=== PATIENT | female | born 1960 | race Caucasian/White ===

== ENCOUNTER 2021-11-16 11:15 | Outpatient (CLI) | payer OTHER, SELFPAY ==
--- NOTE | 2021-11-16 11:36 | MM_ITS ---
WS: [id number] BILATERAL 3D TOMOSYNTHESIS DIGITAL SCREENING MAMMOGRAPHY WITH CAD CLINICAL INFORMATION: SCREENING HISTORY: Screening mammogram. No current complaints. COMPARISON: September 16, 2020 TECHNIQUE: Bilateral CC and MLO views. FINDINGS: Scattered fibroglandular densities bilaterally. A few incidental punctate calcifications. No suspicio us focal mass, asymmetry, calcifications, or architectural distortion. No evidence of malignancy. MM/[place] [id number] IMPRESSION: BI-RADS: 2-Benign FOLLOW UP: 1 Year Follow-up Recommend return to annual screening mammography.
== END 2021-11-16 11:16 | disposition home or self-care (01) ==
LOC: RAD 11:21
PROVIDERS: PCP Nurse Practitioner Family; Visit Provider Nurse Practitioner Family
DX: Z12.31 Encounter for screening mammogram for malignant neoplasm of breast (principal)
CPT/HCPCS: 77063; 77067

== ENCOUNTER 2022-01-04 16:57 | Emergency (ER) | payer OTHER, SELFPAY ==
--- NOTE | 2022-01-04 17:10 | XRR_ITS ---
PROCEDURE INFORMATION: Exam: XR Right Knee Exam date and time: 01/04/2022 9:48 PM Age: 61 years old Clinical indication: Injury or trauma; Fall; Blunt trauma; Knee; Right TECHNIQUE: Imaging protocol: Radiologic exam of the Right knee. Views: 1 or 2 views. Total images: 3 COMPARISON: No relevant prior studies available. FINDINGS: Bones/joints: Bilateral oblique views of the knee. No acute fracture nor subluxation. No osseous erosion nor periosteal reaction. Soft tissues: Normal. XR/XR knee RT 1-2V [id number] IMPRESSION: 1. Bilateral oblique views of the knee. 2. No acute osseous pathology.
--- NOTE | 2022-01-04 17:10 | XRR_ITS ---
PROCEDURE INFORMATION: Exam: XR Left Knee Exam date and time: 01/04/2022 9:52 PM Age: 61 years old Clinical indication: Injury or trauma; Fall; Blunt trauma; Knee; Left TECHNIQUE: Imaging protocol: Radiologic exam of the Left knee. Views: 1 or 2 views. Total images: 2 COMPARISON: No relevant prior studies available. FINDINGS: Bones/joints: Normal. Soft tissues: Normal. XR/XR knee LT 1-2V [id number] IMPRESSION: No acute findings.
[2022-01-04 17:41] VITALS: BP 157/93; PULSE 70; RESP 18; TEMP 36.4; O2SAT 98; BMI 42.0
--- NOTE | 2022-01-04 20:57 | ED_ITS ---
HPI - Fall General: Chief Complaint: Fall Stated Complaint: SLIP AND FALL Time Seen by Provider: 01/04/22 20:56 History of Present Illness: Patient works at [employer]. Patient was walking across a mat that was wet when she slipped and fell landing on her back. Patient reports that her knees bilaterally are hurting her right wrist is hurting in her left elbow. Patient also reports some discomfort in her neck. Patient appears nontoxic. Patient appears in mild pain. 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 Patient does have a history of chronic pain in which she uses medical marijuana for her discomfort. Patient denies any significant injuries. Associated symptoms-after fall: Reports neck pain Review of Systems General: Reports: 10 or more systems reviewed and unremarkable except in HPI and below Musc: Reports: neck pain and extremity pain Physical Exam Const: COMMON NORMALS: alert HENMT: COMMON NORMALS: atraumatic HEAD & SCALP: atraumatic Neck/C-Spine: CERVICAL SPINE: No Cervical spine tenderness and Yes Paracervical muscle tenderness Resp: COMMON NORMALS: normal respiratory effort Cardio: COMMON NORMALS: regular rate RATE: regular rate GI: COMMON NORMALS: Soft to palpation PALPATION: Yes Soft to palpation Back/Pelvis: THORACIC SPINE/UPPER BACK: No thoracic spinal tenderness LUMBAR SPINE/LOWER BACK: No lumbar spinal tenderness Extremity: RIGHT UPPER EXTREMITY: Yes wrist (Joint line tenderness) Right wrist: Yes inspection, Yes palpation and Yes ROM LEFT UPPER EXTREMITY: Yes elbow joint (Normal range of motion, posterior tenderness) Left elbow: Yes inspection, Yes palpation and Yes ROM RIGHT LOWER EXTREMITY: Yes knee joint ( Minimal swelling, normal range of motion) Right knee: Yes inspection, Yes palpation and Yes ROM LEFT LOWER EXTREMITY: Yes knee joint (Normal range of motion) Left knee: Yes inspection, Yes palpation and Yes ROM Neuro: SENSORIUM/ORIENTATION: Yes alert Course Vital Signs: Vital signs: Vital Signs Temperature 97.6 F 01/04/22 17:41 Pulse Rate 87 01/04/22 21:04 Respiratory Rate 16 01/04/22 21:04 Blood Pressure 168/87 01/04/22 21:04 Pulse Oximetry 98 01/04/22 21:04 MDM - Fall Medical Decision Making 61-year-old female comes in today for complaints of injury sustained during a fall. Patient was at work and slipped on the wet floor mat causing her to land on her buttocks and back. Patient reports she injured her knees during the fall and also complains of left elbow and right wrist pain. On exam patient does have some tenderness to the knees bilaterally, right wrist, posterior elbow, and paraspinous muscles of the neck. Differential diagnosis includes multiple contusions, fracture, sprain. X-rays noted no acute fractures. Reviewed exam with patient with recommendations for treatment and follow-up. Patient reported understanding agreed to plan. I did discuss with her a subtle abnormality on the ulnar styloid that most likely is due to arthritic changes but may be a small avulsion fracture. Patient reported understanding and review of the x- rays by radiology and any concern we would notify her. Patient was okay with this plan and need for follow-up. Discharge Plan Discharge Patient Disposition: Home Clinical Impression: Contusion of multiple sites Fall from slipping Qualifiers: Encounter type: initial encounter Qualified Code(s): W01.0XXA - Fall on same level from slipping, tripping and stumbling without subsequent striking against object, initial encounter Condition: Stable Prescriptions: No Action divalproex 500 mg tablet,delayed release (DR/EC) 1,000 mg PO BEDTIME 0RF Calcium 500 500 mg calcium (1,250 mg) Tablet 500 mg PO DAILY 0RF buspirone 10 mg tablet 30 mg PO BID 0RF Rx Instructions: takes in the am and at noon Hair,Skin and Nails Tablet 1 tab PO DAILY 0RF escitalopram oxalate 10 mg tablet 10 mg PO QAM 0RF Vitamin D3 25 mcg (1,000 unit) Tablet 25 mcg PO DAILY 0RF Discharge Orders: Discharge ED (Routine); Ordered 01/04/22 Ordered By: Lauri Garcia Referrals: Zulema Mistry [Primary Care Provider] - Discharge Diet: Usual diet Discharge Activity: Increase activity as tolerated Patient Instructions: Musculoskeletal Pain (ED) Activity Restrictions/Additional Instructions: Activity as tolerated. Gentle stretching and range of motion exercises. Use acetaminophen and ibuprofen for pain. Follow-up with primary care for further instruction. Coding Level of Care Code ED Service Rig Operator for Sheryl Fwdwayne Exam Comprehensive
[2022-01-04 21:04] VITALS: BP 168/87; PULSE 87; RESP 16; O2SAT 98
--- NOTE | 2022-01-04 21:11 | XRR_ITS ---
PROCEDURE INFORMATION: Exam: XR Cervical Spine Exam date and time: 01/04/2022 9:39 PM Age: 61 years old Clinical indication: Injury or trauma; Fall; Blunt trauma TECHNIQUE: Imaging protocol: Radiologic exam of the cervical spine. Views: 2 or 3 views. Total images: 3 COMPARISON: No relevant prior studies available. FINDINGS: Bones/joints: C7 and its relationship with T1 not adequately visualized on lateral view. No acute fracture nor subluxation. No osseous erosion nor periosteal reaction. Soft tissues: Unremarkable. XR/XR cervical spine 3V* [id number] IMPRESSION: 1. C7 and its relationship with T1 not adequately visualized on lateral view. 2. Within limitations of study, no acute cervical spine pathology.
--- NOTE | 2022-01-04 21:11 | XRR_ITS ---
PROCEDURE INFORMATION: Exam: XR Left Elbow Exam date and time: 01/04/2022 9:54 PM Age: 61 years old Clinical indication: Injury or trauma; Fall; Blunt trauma (contusions or hematomas); Wrist; Right; Additional info: Fall injury TECHNIQUE: Imaging protocol: Radiologic exam of the Left elbow. Views: 3 or more views. Total images: 2 COMPARISON: No relevant prior studies available. FINDINGS: Bones/joints: Normal. Soft tissues: Normal. XR/XR elbow LT min 3V* [id number] IMPRESSION: No acute findings.
--- NOTE | 2022-01-04 22:13 | XRR_ITS ---
PROCEDURE INFORMATION: Exam: XR Right Wrist Exam date and time: 01/04/2022 9:58 PM Age: 61 years old Clinical indication: Injury or trauma; Fall; Blunt trauma (contusions or hematomas); Wrist; Right TECHNIQUE: Imaging protocol: Radiologic exam of the Right wrist. Views: 1 or 2 views. Total images: 3 COMPARISON: No relevant prior studies available. FINDINGS: Bones/joints: Tiny ossification adjacent to the ulnar styloid suggesting avulsion fracture age indeterminate. No additional fracture, subluxation, or dislocation detected. Soft tissues: Normal. XR/XR wrist RT 2V [id number] IMPRESSION: 1. Tiny ossification adjacent to the ulnar styloid suggesting avulsion fracture age indeterminate. 2. No additional fracture, subluxation, or dislocation detected.
[2022-01-04 22:22] VITALS: BP 157/78; PULSE 87; RESP 16; O2SAT 98
== END 2022-01-04 22:23 | disposition home or self-care (01) ==
PROVIDERS: Emergency Provider Nurse Practitioner Family; PCP Nurse Practitioner Family
DX: T14.8XXA Other injury of unspecified body region, initial encounter (principal); W01.0XXA Fall on same level from slipping, tripping and stumbling without subsequent striking against object, initial encounter
CPT/HCPCS: 72040; 73080; 73100; 73560; 99284

== ENCOUNTER 2023-03-06 05:46 | Emergency (ER) | payer OTHER, SELFPAY ==
[2023-03-06 05:53] VITALS: BP 164/71; PULSE 67; RESP 18; TEMP 36.8; O2SAT 99; BMI 40.0
--- NOTE | 2023-03-06 05:59 | XRR_ITS ---
PROCEDURE INFORMATION: Exam: XR Right Knee Exam date and time: 03/06/2023 6:25 AM Age: 63 years old Clinical indication: Injury or trauma; Fall; Work related; Blunt trauma; Knee; Right TECHNIQUE: Imaging protocol: Radiologic exam of the right knee. Views: 3 views. COMPARISON: No relevant prior studies available. FINDINGS: Bones/joints: Moderate to severe medial compartment joint space narrowing. Marginal osteophytes in each compartment. Small joint effusion. Negative fracture. Normal joint alignment. Soft tissues: Normal. XR/XR knee RT 3V* [id number] IMPRESSION: Negative for acute osseous abnormality.
--- NOTE | 2023-03-06 06:00 | ED_ITS ---
HPI - Fall General: Chief Complaint: Fall Stated Complaint: fell Time Seen by Provider: 03/06/23 05:57 Source: patient Mode of arrival: ambulatory Limitations: no limitations History of Present Illness: 63-year-old female fell today at work roughly 2 directly onto her right knee she has right knee pain she rates a 6 out of 10 she states she has had chronic pain in that knee as well she is able to ambulate but does make her pain worse denies any other injuries from her fall Associated symptoms-after fall: Denies abdominal pain, chest pain, headache(s) or neck pain Review of Systems Const: Denies: fever(s) or chills ENMT: Denies: throat pain or dental pain Card: Denies: chest pain Resp: Denies: dyspnea GI: Denies: abdominal pain, nausea, vomiting or diarrhea Musc: Reports: extremity pain; Denies: neck pain or back pain Skin/Breast: Denies: rash Neuro: Denies: headache(s) Physical Exam Const: COMMON NORMALS: no acute distress, patient oriented x3 and healthy appearing HENMT: COMMON NORMALS: normocephalic and atraumatic HEAD & SCALP: normocephalic and atraumatic Neck/C-Spine: COMMON NORMALS: full ROM and supple Chest: COMMONS NORMALS: normal inspection of the chest Resp: COMMON NORMALS: normal respiratory effort Cardio: COMMON NORMALS: regular rate, regular rhythm and No murmurs present (Cardio) RATE: regular rate RHYTHM: regular rhythm Extremity: COMMON NORMALS: full ROM NARRATIVE EXTREMITY EXAM: tenderness over anterior knee Neuro: COMMON NORMALS: patient oriented x3, moves all extremities and no focal motor deficits Psych: COMMON NORMALS: mental status grossly normal, Normal thought process present and cooperative THOUGHT PROCESS: Normal thought process present Skin: COMMON NORMALS: no rashes or lesions noted and no wounds GENERAL SKIN EXAM: no rashes or lesions noted Course Vital Signs: Vital signs: Vital Signs Temperature 98.3 F 03/06/23 05:53 Pulse Rate 67 03/06/23 05:53 Respiratory Rate 18 03/06/23 05:53 Blood Pressure 164/71 03/06/23 05:53 Pulse Oximetry 99 03/06/23 05:53 Oxygen Delivery Me thod Nasal Cannula 03/06/23 05:53 MDM - Fall Medical Decision Making Patient presents here with a contusion to her right knee x-ray shows no fracture she is well-appearing here she is able to ambulate she is stable for discharge she is follow-up with PCP and return if worsening. Medical Records I reviewed the patient's medical records. XR interpretation done by ED provider, pending radiology final review ED provider radiology interpretation(s): xr knee: no acute fx Discharge Plan Discharge Patient Disposition: Home Clinical Impression: Contusion of knee, right Condition: Stable Prescriptions: No Action silver sulfadiazine 1 % cream 1 applic topical BID 14 Days Qty: 50 2RF Rx Instructions: apply a 1.5 mm thickness cephalexin 500 mg capsule 500 mg PO BID 7 Days Qty: 14 0RF divalproex 500 mg tablet,delayed release (DR/EC) 1,000 mg PO BEDTIME Calcium 500 500 mg calcium (1,250 mg) Tablet 500 mg PO DAILY buspirone 10 mg tablet 30 mg PO BID Rx Instructions: takes in the am and at noon Hair,Skin and Nails Tablet 1 tab PO DAILY escitalopram oxalate 10 mg tablet 10 mg PO QAM Vitamin D3 25 mcg (1,000 unit) Tablet 25 mcg PO DAILY Discharge Orders: Discharge ED (Routine); Ordered 03/06/23 Ordered By: Ziyad Huitron Referrals: Zulema Mistry FNP [Primary Care Provider] - Discharge Diet: Advance as tolerated Discharge Activity: Resume usual activity Patient Instructions: Contusion in Adults (ED), Knee Pain (ED) Coding Level of Care Code ED Veterinary Practitioner for Sheryl Marmolejo
[2023-03-06 06:49] VITALS: BP 164/71; PULSE 67; RESP 18; TEMP 36.8; O2SAT 99
== END 2023-03-06 06:50 | disposition home or self-care (01) ==
PROVIDERS: Emergency Provider Emergency Medicine; PCP Nurse Practitioner Family
DX: S80.01XA Contusion of right knee, initial encounter (principal); W19.XXXA Unspecified fall, initial encounter; Y99.0 Civilian activity done for income or pay
CPT/HCPCS: 73562; 99283

== ENCOUNTER → 2023-07-12 08:00 | Outpatient (BNVA) | payer MEDICARE, SELFPAY | PROVIDERS: PCP Nurse Practitioner Family; Visit Provider Nurse Practitioner Family | DX: L40.8 Other psoriasis (principal); L40.0 Psoriasis vulgaris | CPT/HCPCS: 99204 ==

== ENCOUNTER 2023-07-21 07:43 | Emergency (ER) | payer MEDICARE, MEDICAID, SELFPAY ==
[2023-07-21 07:45] VITALS: BP 137/95; PULSE 71; RESP 15; TEMP 36.4; O2SAT 97
--- NOTE | 2023-07-21 08:11 | XRR_ITS ---
PROCEDURE INFORMATION: Exam: XR Chest Exam date and time: 07/21/2023 8:43 AM Age: 63 years old Clinical indication: Shortness of breath; Additional info: Cough and congestion TECHNIQUE: Imaging protocol: Radiologic exam of the chest. Views: 2 views. COMPARISON: CR XR cervical spine 3V* [id number] 01/04/2022 9:39 PM FINDINGS: Lungs: Unremarkable. No consolidation. Pleural spaces: Unremarkable. No pleural effusion. No pneumothorax. Heart/Mediastinum: Unremarkable. No cardiomegaly. Vasculature: Aortic arch atherosclerotic calcification. Bones/joints: Mild degenerative changes along the spine. XR/XR chest 2V* [id number] IMPRESSION: No acute findings.
--- NOTE | 2023-07-21 08:15 | ED_ITS ---
HPI - URI/Sore Throat General: Chief Complaint: Upper Respiratory Infection Stated Complaint: headache, sore throat Time Seen by Provider: 07/21/23 07:49 History of Present Illness: 63-year-old female presents emergency de partment chief complaint of a productive cough has been ongoing for last 2 to 3 days patient reports at work she inhaled a odiferous substance that was thrown into the trash at work in which she has had cough and congestion since patient does not endorse fevers or chills she reports it is unknown what the color of her sputum is patient reports generalized fatigue and malaise she does not endorse any fevers or chills or any recent sick or ill contacts patient reports a prior history of smoking however quit roughly 13 years ago and which has no reportable history of COPD. Patient presents to the emergency room department for further assessment management. Associated symptoms: Deny abdominal pain, chills, chest pain, fever(s), headache(s), nausea or vomiting Review of Systems General: Reports: 10 or more systems reviewed and unremarkable except in HPI and below Const: Reports: fatigue and malaise; Denies: fever(s) or chills Eyes: Denies: change in vision or blurry vision Card: Denies: chest pain or palpitations Resp: Reports: dyspnea, productive cough, change in phlegm color and chest congestion GI: Denies: abdominal pain, nausea or vomiting : Denies: flank pain Musc: Denies: extremity pain or extremity swelling Skin/Breast: Denies: rash or pruritus Neuro: Denies: headache(s) Psych: Denies: anxiety or depression Juan/Lymph: Denies: easy bleeding All/Imm: Denies: urticaria, throat swelling or facial swelling Physical Exam Narrative: EXAM NARRATIVE: Patient appears nontoxic appears in no obvious acute distress afebrile on exam. Const: COMMON NORMALS: no acute distress, patient oriented x3 and healthy appearing HENMT: COMMON NORMALS: normocephalic and atraumatic HEAD & SCALP: normocephalic and atraumatic Eye: COMMON NORMALS: Equal, round and reactive pupils present and EOMs intact bilaterally PUPIL: Yes Equal, round and reactive pupils present Neck/C-Spine: COMMON NORMALS: full ROM, supple and no JVD Lymph: LYMPHATIC: no lymphadenopathy noted Chest: COMMONS NORMALS: normal inspection of the chest and normal palpation of entire chest wall Resp: COMMON NORMALS: normal respiratory effort (Equal breath sounds appreciated bilaterally with no obvious wheezing crackl), No retractions and clear to auscultation bilaterally EFFORT & INSPECTION: Yes able to speak in complete sentences and Yes symmetric chest movement AUSCULTATION: clear to auscultation bilaterally Cardio: COMMON NORMALS: no JVD, regular rate and regular rhythm RATE: regular rate RHYTHM: regular rhythm GI: COMMON NORMALS: Normal to inspection, nondistended, normoactive bowel sounds present, Soft to palpation and non-tender INSPECTION: Yes normal to inspection PALPATION: Yes Soft to palpation : COMMON NORMALS: Yes no CVA tenderness BLADDER/KIDNEY EXAM: Yes no CVA tenderness Back/Pelvis: COMMON NORMALS: no CVA tenderness Extremity: COMMON NORMALS: normal to inspection and full ROM Neuro: COMMON NORMALS: patient oriented x3, CN's II-XII intact bilaterally, moves all extremities and no focal motor deficits Psych: COMMON NORMALS: mental status grossly normal, Normal thought process present, cooperative and normal affect THOUGHT PROCESS: Normal thought process present Skin: COMMON NORMALS: no rashes or lesions noted GENERAL SKIN EXAM: no rashes or lesions noted Course Vital Signs: Vital signs: Vital Signs Temperature 97.5 F L 07/21/23 07:45 Pulse Rate 71 07/21/23 07:45 Respiratory Rate 15 07/21/23 07:45 Blood Pressure 137/95 07/21/23 07:45 Pulse Oximetry 97 07/21/23 07:45 Oxygen Delivery Me thod Room Air 07/21/23 07:45 MDM - URI/Sore Throat Medical Decision Making Due to patient's symptoms and condition a chest x-ray will be obtained we will continue to follow patient appears to be having an upper respiratory tract infection no actual wheezing or crackles are appreciated we will continue to follow. X-ray imaging came back unremarkable patient was reassessed remained stable condition which patient will be treated with additional medication for symptoms advised further follow-up primary care in 2 to 3 days in which advised return the interim if any of her symptoms persist or worse. Lab Data Radiology Impressions Chest X-Ray 07/21/23 08:11 IMPRESSION: No acute findings. All radiology interpretation(s) finalized by discharge Discharge Plan Discharge Patient Disposition: Home Clinical Impression: Bronchitis Upper respiratory infection Qualifiers: URI type: unspecified viral URI Qualified Code(s): J06.9 - Acute upper respiratory infection, unspecified Condition: Stable Prescriptions: New albuterol sulfate [Ventolin HFA] 90 mcg/actuation HFA aerosol inhaler 1 inh inhalation Q6H PRN (Reason: shortness of breath or wheezing) Qty: 6.7 0RF fluticasone propionate [Flonase Allergy Relief] 50 mcg/actuation spray,suspension 1 spray intranasal Q12H PRN (Reason: nasal congestion) Qty: 16 0RF Rx Instructions: administer into each nostril prednisone 20 mg tablet 20 mg PO BID 7 Days Qty: 14 0RF No Action silver sulfadiazine 1 % cream 1 applic topical BID 14 Days Qty: 50 2RF Rx Instructions: apply a 1.5 mm thickness cephalexin 500 mg capsule 500 mg PO BID 7 Days Qty: 14 0RF divalproex 500 mg tablet,delayed release (DR/EC) 1,000 mg PO BEDTIME Calcium 500 500 mg calcium (1,250 mg) Tablet 500 mg PO DAILY buspirone 10 mg tablet 30 mg PO BID Rx Instructions: takes in the am and at noon Hair,Skin and Nails Tablet 1 tab PO DAILY escitalopram oxalate 10 mg tablet 10 mg PO QAM Vitamin D3 25 mcg (1,000 unit) Tablet 25 mcg PO DAILY Naprosyn 500 mg tablet 500 mg PO BID PRN (Reason: pain) Qty: 20 0RF Discharge Orders: Discharge ED (Routine); Ordered 07/21/23 Ordered By: Reyes Shultz Referrals: Zulema Mistry FNP [Primary Care Provider] - 4-7 days Discharge Activity: Increase activity as tolerated Patient Instructions: Acute Bronchitis (ED), Opioid Safety, Pain Management, Upper Respiratory Infection - Adult Activity Restrictions/Additional Instructions: please further follow-up with primary care doctor in 2 to 3 days, please take medications as prescribed in which please return the interim if any of your symptoms persist or worse. Coding Level of Care Code ED Store Administrative Assistant for Sheryl Marmolejo
[2023-07-21 09:52] VITALS: PULSE 69; O2SAT 94
== END 2023-07-21 09:53 | disposition home or self-care (01) ==
PROVIDERS: Emergency Provider Emergency Medicine; PCP Nurse Practitioner Family
DX: J40 Bronchitis, not specified as acute or chronic (principal); J06.9 Acute upper respiratory infection, unspecified
CPT/HCPCS: 71046; 99283

== ENCOUNTER → 2023-11-01 09:22 | Outpatient (BNVA) | payer MEDICARE, SELFPAY | PROVIDERS: PCP Nurse Practitioner Family; Visit Provider Podiatrist Foot & Ankle Surgery | DX: L60.0 Ingrowing nail (principal); L60.3 Nail dystrophy | CPT/HCPCS: 11750 ==

== ENCOUNTER → 2023-11-22 09:16 | Outpatient (BNVA) | payer MEDICARE, SELFPAY | PROVIDERS: PCP Nurse Practitioner Family; Visit Provider Podiatrist Foot & Ankle Surgery | DX: L60.3 Nail dystrophy (principal) | CPT/HCPCS: 11750 ==

== ENCOUNTER → 2023-12-27 07:46 | Outpatient (BNVA) | payer MEDICARE, SELFPAY | PROVIDERS: PCP Nurse Practitioner Family; Visit Provider Podiatrist Foot & Ankle Surgery | DX: L60.3 Nail dystrophy (principal) | CPT/HCPCS: 11750 ==

== ENCOUNTER → 2024-01-17 11:12 | Outpatient (BNVA) | payer MEDICARE, SELFPAY | PROVIDERS: PCP Nurse Practitioner Family; Visit Provider Podiatrist Foot & Ankle Surgery | DX: Z98.890 Other specified postprocedural states (principal) | CPT/HCPCS: 99213 ==

== ENCOUNTER → 2025-05-27 12:49 | Outpatient (BNVA) | payer MEDICARE, SELFPAY | PROVIDERS: PCP Nurse Practitioner Family; Visit Provider Surgery | DX: K82.9 Disease of gallbladder, unspecified (principal); K80.20 Calculus of gallbladder without cholecystitis without obstruction | CPT/HCPCS: 99204 ==